=== PATIENT | male | born 1980 | race Caucasian/White ===

== ENCOUNTER 2021-04-26 09:52 | Emergency (ER) | payer BC, SELFPAY ==
[2021-04-26 09:53] VITALS: BP 143/100; PULSE 75; RESP 18; TEMP 36.8; O2SAT 98; BMI 27.3
--- NOTE | 2021-04-26 10:06 | ECG_ITS ---
APPROVED REPORT Exam: Resting ECG HR:62 bpm ECG Measurements Heart Rate 62 AXES SC 122 P 54 QRSd 82 QRS 59 QT 370 T 43 QTc 375 Conclusion Normal sinus rhythm Normal ECG Electronically signed by : Jaren Byrnes MD 04/26/2021 18:01:27
[2021-04-26 10:07] VITALS: BMI 27.3
--- NOTE | 2021-04-26 10:11 | XR_ITS ---
PROCEDURE: XR CHEST PORTABLE CLINICAL HISTORY: soa positive covid COMPARISON: No exams were available for comparison FINDINGS: The cardiomediastinal silhouette and pulmonary vascularity are within normal limits. Atelectatic changes are present in the right lower lobe and left midlung. No lobar consolidation or collapse. No acute bony abnormalities. IMPRESSION: Atelectatic changes otherwise negative Dictated by: Osorio Carrera MD 04/26/2021 11:49 Osorio Carrera MD in [place] 04/26/2021 11:49
[2021-04-26 10:29] LABS: Chloride 104 mmol/L (98-107)
[2021-04-26 10:30] VITALS: BP 126/83; PULSE 72; RESP 18; O2SAT 95
[2021-04-26 10:30] LABS: Potassium 4.1 mmoL/L (3.5-5.1); Sodium 140 mmol/L (136-145)
[2021-04-26 10:33] LABS: Anion Gap 15.1 mEq/L (5-15); Blood Urea Nitrogen 17 mg/dl (9-20); Calcium 8.7 mg/dl (8.4-10.2); Carbon Dioxide 25 mmol/L (22.0-30.0); Creatinine Clearance Estimated 122 mL/min (50-200); Estimated Glomerular Filt Rate 93 ml/min (>60); GFR (African American) 113 ML/MIN (>60); Glucose 110 mg/dl (74-100)
[2021-04-26 10:46] LABS: Troponin I < 0.01 ng/ml (0.00-0.034)
[2021-04-26 10:48] LABS: Basophils % 1.1 % (0.1-2.0); Eosinophils # 0.1 K/mm3 (0.0-0.4); Hematocrit 52.9 % (42.0-52.0); Hemoglobin 17.8 g/dL (14.1-18.0); Lymphocytes # 1.1 K/mm3 (0.7-4.5); Lymphocytes % 33.3 % (10-50); Mean Corpuscular HGB Conc 33.6 g/dL (31.8-35.4); Mean Corpuscular Volume 89.4 fl (80-94); Mean Platelet Volume 8.4 fl (7.4-10.4); Monocytes # 0.3 K/mm3 (0.1-1.0); Monocytes % 9.5 % (1.7-9.3); Neutrophils # 1.7 K/mm3 (1.8-7.8); Neutrophils % 54.1 % (37.0-80.0); Platelet Count 174 K/mm3 (142-424); Red Blood Count 5.91 M/mm3 (4.60-6.20); Red Cell Distribution Width 13.1 % (11.5-17.5); White Blood Count 3.1 K/mm3 (4.8-10.8)
[2021-04-26 11:00] VITALS: BP 131/85; PULSE 71; RESP 18; O2SAT 95
--- NOTE | 2021-04-26 11:08 | HMH.EDCP ---
ED Disposition Clinical Impression: Bronchitis due to COVID-19 virus Disposition: Home, Self-Care Condition on Discharge: Good Instructions: DI for Acute Bronchitis Prescriptions: Albuterol Sulfate [Albuterol Sulfate Hfa] 1 puff IH Q6 #1 [email or web address] Prescription Printed Referrals: Provider,Referral, [Primary Care Provider] - - Critical Care Critical Care Time: No Attestation: On , the high probability of a clinically significant, sudden or life threatening deterioration of the following system(s) required my full and direct attention, intervention and personal management. The time I documented below is in addition to time spent performing reported procedures but includes the following listed in this critical care notation. Medical Decision Making - Medical Records Medical records reviewed: Yes: I reviewed the patient's medical records. - Demetrius Inquiry Pt receiving controlled substance: No Vital Signs: 04/26/21 09:53 Temperature 98.3 F Temperature Source Oral Pulse Rate [Right] 75 Respiratory Rate 18 Blood Pressure [Right Arm] 143/100 H Blood Pressure Mean [Right Arm] 114 02 Sat by Pulse Oximetry 98 Oxygen Delivery Method Room Air - Lab Data Lab Results 04/26/21 10:17: WBC 3.1 L, RBC 5.91, Hgb 17.8, Hct 52.9 H, MCV 89.4, MCH 30.0, MCHC 33.6, RDW 13.1, Plt Count 174, MPV 8.4, Neut % (Auto) 54.1, Lymph % (Auto) 33.3, [place] % (Auto) 9.5 H, Eos % (Auto) 2.0, Baso % (Auto) 1.1, Neut # (Auto) 1.7 L, Lymph # (Auto) 1.1, [place] # (Auto) 0.3, Eos # (Auto) 0.1, Baso # (Auto) 0.0 04/26/21 10:17: Sodium 140, Potassium 4.1, Chloride 104, Carbon Dioxide 25, Anion Gap 15.1 H, BUN 17, Creatinine 0.90, Estimated Creat Clear 122, Estimated GFR 93, Est GFR ( Amer) 113, Glucose 110 H, Calcium 8.7, Troponin I < 0.01 Result diagrams: 04/26/21 10:17 04/26/21 10:17 Orders (Tests/Meds): ED MEDICATIONS Discontinued Medications Generic Name Dose Route Start Last Admin Trade Name Freq PRN Reason Stop Dose Admin Dexamethasone Sodium Phosphate 10 mg 04/26/21 10:28 04/26/21 11:09 Dexamethasone 4mg/Ml 5ml Mdv IV 04/26/21 10:29 10 mg ONCE ONE Administration Sodium Chloride 1,000 mls @ 999 mls/hr 04/26/21 10:30 04/26/21 11:09 Sod Chlor 0.9% 1000ml Bag IV 04/26/21 11:30 999 mls/hr .Q1H1M ROMERO Administration ORDERS Category Date Time Status Troponin I Q3H Lab 04/26/21 13:15 Ordered Troponin I Q3H Lab 04/26/21 16:15 Ordered - Radiology Data #1 Image(s): Chest Image Reviewed: Yes I reviewed the patient's radiology results, Yes I have reviewed radiologist's interpretation IMPRESSION: Atelectatic changes otherwise negative - ECG Data Tracing #1 I reviewed this ECG and interpreted as documented below: ECG initial impression date: 04/26/21 ECG initial impression time: 10:06 ECG normal with no acute: arrhythmias, ischemia, conduction abnormalities, chamber hypertrophy Normal Sinus Rhythm: Yes - Reevaluation(s) Time: 11:55 Reevaluation #1: On reevaluation, patient is feeling better. Again there is no hypoxia or respiratory distress. Work-up benign. Symptoms consistent with bronchitis. Patient was administered steroids in the emergency department. Will be discharged with inhaler. Patient to continue his quarantine per CDC guidelines. Given strict return precautions. Verbalized understanding. Medical Decision Narrative: 41-year-old male presented to the emergency department with some cough and chest discomfort. Findings consistent with bronchitis. Patient is Covid positive. However nontoxic, no hypoxia or respiratory distress. Work-up initiated. Chest Pain HPI - General Chief Complaint: Chest Pain Stated Complaint: covid postive Time Seen by Provider: 04/26/21 10:00 Mode of Arrival: Family Vehicle Limitations: No Limitations Description of Symptoms (Recalled from ER Triage Doc. by RN): Patient c/o intermittent chest pain and SOA for the last thre
--- NOTE | 2021-04-26 11:27 | PC.NURSE ---
When patient registered, patient did not declare chest pain and patient was registered and placed in ED triage
[2021-04-26 11:53] VITALS: BP 121/81; PULSE 78; RESP 20; O2SAT 95
[2021-04-26 12:09] VITALS: BP 119/88; PULSE 82; RESP 15; TEMP 36.9; O2SAT 96
== END 2021-04-26 12:13 | disposition home or self-care (01) ==
LOC: ER 12:11
PROVIDERS: Emergency Provider Emergency Medicine
DX: U07.1 COVID-19 (principal); J20.9 Acute bronchitis, unspecified
CPT/HCPCS: 71045; 80048; 84484; 85025; 93005; 96365; 96375; 99283

== ENCOUNTER → 2021-05-11 09:11 | Outpatient (CLI) | payer BC, SELFPAY ==
--- NOTE | 2021-05-11 09:19 | XR_ITS ---
PROCEDURE: XR KUB CLINICAL INDICATION: ureteral stone COMPARISON: No exams were available for comparison FINDINGS: There are numerous bilateral renal calculi the largest in the lower pole on the left at 14 mm. There are 3 small areas increased density in the left pelvic region at 2 mm each and could be related distal ureteral stones. There are no previous exams available for comparison. No acute bony findings. Nonspecific bowel gas pattern with a mild amount of retained colonic feces. IMPRESSION: Bilateral nephrolithiasis with possible left ureteral calculi distally Dictated by: Osorio Carrera MD 05/11/2021 09:32 Osorio Carrera MD in [place] 05/11/2021 09:32
== END ==
PROVIDERS: Visit Provider Urology
DX: Z01.812 Encounter for preprocedural laboratory examination (principal); Z20.822 Contact with and (suspected) exposure to COVID-19; U07.1 COVID-19; N20.1 Calculus of ureter
CPT/HCPCS: 74018; U0003

== ENCOUNTER → 2021-05-11 10:14 | Outpatient (CLI) | payer BC, SELFPAY | PROVIDERS: Visit Provider Urology | DX: Z11.52 Encounter for screening for COVID-19 (principal) | CPT/HCPCS: U0003 ==

== ENCOUNTER 2021-05-14 08:48 | Day surgery (SDC) | payer BC, SELFPAY ==
[2021-05-12 08:49] VITALS: BMI 26.7
[2021-05-14] VITALS (10 sets, daily range): BP systolic 114–144; BP diastolic 7–91; PULSE 65–102; RESP 16–18; TEMP 36.1–43; O2SAT 93–939
--- NOTE | 2021-05-14 09:25 | XR_ITS ---
PROCEDURE: XR KUB CLINICAL INDICATION: left kidney stone COMPARISON: CR XR KUB from 05/11/2021 FINDINGS: Bilateral nephrolithiasis is noted. A cluster of stones noted in the lower pole of the left kidney with the largest stone measuring 12 mm. 3 mm stone is present in the lower pole of the right kidney. In the pelvic region there are 2 calcifications on the left in the mid pelvic area measuring 3 and 5 mm suspicious for ureteral calculi not significantly changed. A faint density is also noted in the right pelvic area measuring 6 mm and could represent a ureteral calculus as well not significantly changed. Bowel gas pattern is nonspecific. No acute bony anomalies evident. IMPRESSION: Bilateral nephrolithiasis with suspected left distal ureteral calculi and possible right ureteral calculus. Please correlate with any recent CTs at may be available. None are available at this institution. Dictated by: Osorio Carrera MD 05/14/2021 09:40 Osorio Carrera MD in [place] 05/14/2021 09:40
--- NOTE | 2021-05-14 10:15 | P.PN_ITS ---
[facility] Anesthesia Checklist - Patient Identification Patient Identification: Arm Band - Structural Data Admitted From: Home Planned Operative Procedure/s: Left Ureteroscopy with Laser Stone Extraction + stent placement, Left ESWL Consent for Planned Operative Procedure(s) Verified: Yes Verified Documents: Surgical Consent, History and Physical - Additional verifications Anesthesia Reactions: No Hx Blood Transfusions: No Blood Transfusion Reaction: No - Airway Assessment C-Spine Mobility Assessed: Yes (mp2) TMJ Mobility Assessed: Yes Dentition: Good Dentition - Neurological Assessment Level of Consciousness: Awake, Alert - Anesthesia Plan Anesthesia Risk discussed: Yes Anesthesia Plan: Verified ASA Class: I Anesthesia Type: General [facility] History I have reviewed the patient's past medical history: Yes Medical History: Reports:: Asthma, Kidney Stones Denies:: Cancer, Diabetes Mellitus Type 1, Diabetes Mellitus Type 2, Internal Pacemaker, MRSA, Seizures *Have you ever received a pneumonia vaccine?: No *Have you received a flu vaccine this season?: No Other Medical History: Denies: Blood Transfusion Reaction Anesthesia experience/problems:: nac Other Surgeries: Yes: Other. No: Pacemaker Amputation: No Fractures: No - *Social History Last grade of school completed: High school graduate Smoking Status: Current every day smoker Tobacco Type: smokeless tobacco # Packs/Day (cigarettes): 1 Alcohol Intake: current Alcohol Intake Frequency:: a few times a month Substance Use Type: denies use *Occupational Status:: employed Housing: house Household Members: none *Travel in the last 8 weeks: None Family Hx:: No significant family history
--- NOTE | 2021-05-14 11:50 | P.PN_ITS ---
[facility] Anesthesia Record Part I Intake, IV Amount: 900 Estimated blood loss (mL): 0 Urine output (mL): 0 Blood Pressure: 123/71 SaO2: 93 Pulse Rate: 96 Respiratory Rate: 16 Temperature: 97.6 F Patient is:: Drowsy, Stable Stable to PACU at:: 11:50
--- NOTE | 2021-05-14 13:10 | HMH.OPNOTE ---
Date of procedure: 05/14/21 Pre-op Diagnosis:: 6 mm distal left ureteral stone and 1.7 x 1.3 left lower pole stone. Post-op Diagnosis:: Left ureteral stone, left lower pole stone left ureteral stenosis Procedure performed:: Cystoscopy with left ureteroscopy dilation of ureteral stenosis laser lithotripsy of ureteral stone, stone extraction, left stent placement. Procedure #2. Left ESWL Surgeon:: Isidro Cleaning MD GAS [employer]MP ATTENDANT:: Eulalio Peralta Anesthesia: GETA Estimated blood loss (mL): 0 Clinical Note:: 41-year-old white male with recent left renal colic noted to have a distal left ureteral stone as well as a 1.7 x 1.3 cm stone in the left lower pole. He presents today for urologic management. Operative findings:: 6 mm distal left ureteral stone with ureteral stenosis below the stone as well as at the large left lower pole stone Operative note:: Patient taken to the operating room after informed consent was obtained. He was placed on the operating table in supine position and general anesthesia administered. He was then placed into the dorsal lithotomy position and prepped and draped in the standard surgical fashion. Preoperative antibiotics and sequential compression devices were placed. Fluoroscopy revealed the left lower pole calcification which was very well calcified is well as a faint calcification in the region of the distal left ureter. The 22 Georgian cystoscope passed into the urethra and into the bladder without difficulty. The bladder was examined in a systematic fashion and there were no mucosal abnormalities or stones. The left ureteral orifice appeared to be a bit inflamed. A guidewire was passed into the left ureter with use of the open-ended ureteral catheter and we were able to pass the wire by the stone with little bit of resistance. The ureteral orifice appeared to be a bit stenotic and it was dilated to 12 maci for 2 minutes with the 4 x 15 UroMax balloon dilator. The balloon then deflated and removed. The cystoscope removed and our semirigid ureteroscope passed into the bladder and into the left ureter. Stone was present and the 200 nm laser fiber was passed through the scope and the stone fragmented easily into small pieces. The laser removed and the 1.9 Georgian nitinol stone basket passed through the scope and a stone fragments were removed without difficulty. A 6 x 24 Georgian stent then passed over the guidewire and the guidewire removed. The string was left on for later removal. A good curl was noted proximally and distally. During the ureteroscopic procedure the ESWL machine was focused onto the large left lower pole stone and 3000 shockwaves delivered to the stone with very good fragmentation. The patient had been padded appropriately prior to the ESWL. Patient tolerated procedure well no complications. He was discharged to recovery in stable condition. Condition: stable Disposition: PACU Specimens:: Ureteral stone Complications:: None
--- NOTE | 2021-05-14 13:15 | SUR.PHASEII ---
PT HAS BEEN TO BR SEVERAL TIMES, ABLE TO VOID, URINE IS BLOODY NO CLOTS NOTED. C/O PAIN IN LOWER L ABDOMEN AND DR. ARGUELLES IS AWARE. PT DRESSED AND IN W/C, DRINKING WATER. DISCHARGE INSTRUCTIONS AND FOLLOW UP REVIEWED WITH PT-VERBALIZED UNDERSTANDING. PT TAKEN OUT TO TRUCK, PLEASANT AND COOPERATIVE.
--- NOTE | 2021-05-14 13:53 | PC.NURSE ---
INITIAL ASSESSMENT TIME CORRECTION IS 1223, NOT 1232.
--- NOTE | 2021-05-17 14:14 | HMH.ANESII ---
[facility] Anesthesia Record Part II Discharge Time: 12:20 Destination: Surgical Day Care (OP Surgery) PACU nurse assessment reviewed?: Yes Patient Condition:: Good Anesthesia Complications:: None Swallowing reflex intact?: Yes Cyanosis?: No Blood Pressure: 143/86 Pulse Rate: 65 Temperature: 97 F Mental Status: Alert & Oriented Pain level:: 0 Nausea and/or vomitting:: None Intake, IV Amount: 0
[2021-05-17 14:15] VITALS: BP 143/86; PULSE 65; TEMP 36.1
[2021-05-29 17:29] LABS: Specimen Type Not Provided
[2021-05-29 17:30] LABS: Ca oxalate dihydrate 100
== END 2021-05-14 13:18 | disposition home or self-care (01) ==
LOC: OR 08:50
PROVIDERS: Visit Provider Urology
PROC: (CPT 50590; principal; 2021-05-14 10:15)
DX: N20.0 Calculus of kidney (principal); N20.1 Calculus of ureter; J45.909 Unspecified asthma, uncomplicated; Z88.1 Allergy status to other antibiotic agents; N35.819 Other urethral stricture, male, unspecified site
CPT/HCPCS: 50590; 52344; 52332; 74018; 82370; 96374; C2617; J2710; Q9967

== ENCOUNTER → 2021-05-21 12:50 | Outpatient (CLI) | payer BC, SELFPAY ==
--- NOTE | 2021-05-21 13:16 | XR_ITS ---
PROCEDURE: XR KUB CLINICAL INDICATION: ureteral stone COMPARISON: CR XR KUB from 05/14/2021 FINDINGS: There is a left ureteral stent in place with the upper aspect of the stent overlying the upper pole of the left kidney and the inferior aspect of the stent overlying the lower pelvis/urinary bladder region. Stone fragments are present in the lower pole of the left kidney and along the left mid ureter. Previously noted left distal ureteral calculi are no longer apparent. IMPRESSION: Left ureteral stent in place with left nephrolithiasis and small stone fragments in the mid left ureter Dictated by: Osorio Carrera MD 05/21/2021 13:42 Osorio Carrera MD in [place] 05/21/2021 13:42
== END ==
PROVIDERS: Visit Provider Urology
DX: N20.1 Calculus of ureter (principal)
CPT/HCPCS: 74018

== ENCOUNTER → 2021-05-21 16:31 | Outpatient (CLI) | payer BC, SELFPAY ==
[2021-05-29 17:09] LABS: Specimen Type NOT PROVIDED
[2021-05-29 17:10] LABS: Ca oxalate dihydrate 80
== END ==
LOC: LAB 16:31 → LAB.DROPOF 16:32
PROVIDERS: Visit Provider Urology
DX: N20.0 Calculus of kidney (principal)
CPT/HCPCS: 82370

== ENCOUNTER 2021-07-02 07:05 | Day surgery (SDC) | payer BC, SELFPAY ==
[2021-06-28 10:26] VITALS: BMI 25.8
[2021-07-02 07:19] VITALS: BP 138/94; PULSE 77; RESP 18; TEMP 36.8; O2SAT 98
[2021-07-02 08:48] VITALS: BP 149/101; PULSE 67; RESP 18; TEMP 37.1; O2SAT 97
[2021-07-02 08:59] VITALS: BP 149/101; PULSE 67; RESP 18; TEMP 37.1; O2SAT 97
--- NOTE | 2021-07-02 09:19 | HMH.OPNOTE ---
Date of procedure: 07/02/21 Pre-op Diagnosis:: Desires sterilization Post-op Diagnosis:: Same Procedure performed:: Vasectomy Surgeon:: Isidro Cleaning MD Anesthesia: local Estimated blood loss (mL): 2 Clinical Note:: 41-year-old white male presents for vasectomy today. We again discussed the postoperative complications and precautions. Operative findings:: Scrotal and testicular examination were normal. Vasectomy went well under local anesthetic. Operative note:: Patient taken to the operating suite after informed consent was obtained. On the stretcher he was prepped and draped in the standard surgical fashion. Scrotal management testicles were examined and were within normal limits. The left vas was grasped between thumb and forefinger and brought up to the midline raphae anteriorly. Local anesthetic was placed into the skin and around the left vas. After adequate analgesia a scalpel was used to incise skin along the midline raphae. The vas was grasped with a tenaculum and brought out through the incision. The vasal sheath was incised and the adventitia was dissected away from the vas proper. The vas was clamped distally with 1 clip and proximally with 2 clips. A 1 cm segment excised and the basal lumens were cauterized. Left vas was dropped back into the hemiscrotum and the right vas was brought up to the same incision and local anesthetic placed around the vas. Identical procedure was performed as on the left side. The right vas was dropped back into the right hemiscrotum and hemostasis achieved. A 3-0 chromic was placed to the skin for closure in a horizontal mattress fashion. Compression dressing applied. Patient tolerated procedure well Condition: stable Disposition: same day Specimens:: Vas segments were not sent Complications:: None
== END 2021-07-02 08:59 | disposition home or self-care (01) ==
LOC: OUTP 07:07
PROVIDERS: Visit Provider Urology
PROC: (CPT 55250; principal; 2021-07-02 08:00)
DX: Z30.2 Encounter for sterilization (principal); Z88.1 Allergy status to other antibiotic agents
CPT/HCPCS: 55250